=== PATIENT | male | born 1995 | race Caucasian/White ===

== ENCOUNTER → 2020-06-27 15:05 | Outpatient (CLI) | payer OTHER, SELFPAY ==
[2020-07-02 20:07] LABS: Barley, Whole Grain <0.10 kU/L (Class 0); Clam <0.10 kU/L (Class 0); Gluten <0.10 kU/L (Class 0)
[2020-07-03 12:30] LABS: Crab <0.10 kU/L (Class 0); Yeast <0.10 kU/L (Class 0)
[2020-07-04 15:53] LABS: Immunoglobulin E 16
[2020-07-04 15:57] LABS: Penicillium Notatum <0.10 kU/L
== END ==
PROVIDERS: Referring Provider Otolaryngology; Visit Provider Otolaryngology
DX: T78.40XA Allergy, unspecified, initial encounter (principal)
CPT/HCPCS: 82785; 86003